=== PATIENT | female | born 1965 | race Two or more races ===

== ENCOUNTER 2017-09-18 06:10 | Outpatient (CLI) | payer OTHER ==
[2017-09-18] MEDS ORDERED: DICLOFENAC POTA50 MG PO (08:45)
== END 2017-09-18 06:18 | disposition home or self-care (01) ==
LOC: LAB 06:10
DX: D68.8 Other specified coagulation defects (principal); E78.2 Mixed hyperlipidemia; N39.0 Urinary tract infection, site not specified

== ENCOUNTER 2017-09-21 20:40 | Inpatient (IN) | payer OTHER ==
[~2017-09-21] VITALS: Ht 170.2 cm; Wt 77.1 kg
[~2017-09-21 20:40] MED LIST: DICLOFENAC POTA50 MG PO
== END 2017-09-26 14:53 | DRG 470 ==
LOC: SURG 09-23 05:54 → O/R 09-23 05:54 → SURH 09-23 07:54 → SURG 09-23 11:32 → SURH 09-23 19:05 → SURG 09-26 14:53
PROVIDERS: Orthopaedic Surgery
PROC: 0SRD0J9 Replacement of Left Knee Joint with Synthetic Substitute, Cemented, Open Approach (ICD-10-PCS; principal; 2017-09-23 10:00)
DX: M17.12 Unilateral primary osteoarthritis, left knee (principal); D62 Acute posthemorrhagic anemia

== ENCOUNTER 2017-11-10 09:26 | Outpatient (CLI) | payer OTHER | END 2017-11-10 09:31 | disposition home or self-care (01) | LOC: RAD 09:26 | DX: M25.561 Pain in right knee (principal); M25.562 Pain in left knee ==

== ENCOUNTER 2017-11-18 15:07 | Outpatient (CLI) | payer OTHER | END 2017-11-18 18:02 | disposition home or self-care (01) | LOC: RAD 15:07 | DX: M46.02 Spinal enthesopathy, cervical region (principal); M62.838 Other muscle spasm ==

== ENCOUNTER 2018-07-09 14:16 | Outpatient (CLI) | payer OTHER | END 2018-07-09 14:23 | disposition home or self-care (01) | LOC: RAD 14:16 | DX: M51.36 Other intervertebral disc degeneration, lumbar region (principal); M54.5 Low back pain ==

== ENCOUNTER 2018-08-19 11:20 | Outpatient (CLI) | payer OTHER | END 2018-08-19 11:23 | disposition home or self-care (01) | LOC: MAMO-SONO 11:20 | DX: N60.21 Fibroadenosis of right breast (principal); Z12.31 Encounter for screening mammogram for malignant neoplasm of breast ==

== ENCOUNTER 2019-05-26 13:07 | Outpatient (CLI) | payer OTHER | END 2019-05-26 13:14 | disposition home or self-care (01) | LOC: RAD 13:07 | DX: M25.561 Pain in right knee (principal); M25.562 Pain in left knee ==

== ENCOUNTER 2020-01-12 13:06 | Outpatient (CLI) | payer OTHER | END 2020-01-12 13:13 | disposition home or self-care (01) | LOC: RAD 13:06 | DX: M25.512 Pain in left shoulder (principal) ==

== ENCOUNTER 2020-11-20 10:36 | Outpatient (CLI) | payer OTHER | END 2020-11-20 10:40 | disposition home or self-care (01) | LOC: RAD 10:36 | PROVIDERS: ATTEND Orthopaedic Surgery Sports Medicine | DX: M19.012 Primary osteoarthritis, left shoulder (principal) ==

== ENCOUNTER → 2022-10-14 08:11 | Outpatient (CLI) | payer OTHER ==
[~2022-10-14] VITALS: Ht 170.2 cm; Wt 80.7 kg
== END | disposition home or self-care (01) ==
LOC: LAB 08:11
PROVIDERS: ATTEND Orthopaedic Surgery
DX: I49.9 Cardiac arrhythmia, unspecified (principal); Z76.89 Persons encountering health services in other specified circumstances; I10 Essential (primary) hypertension; D64.9 Anemia, unspecified; E88.9 Metabolic disorder, unspecified; D68.8 Other specified coagulation defects; N39.0 Urinary tract infection, site not specified; A49.02 Methicillin resistant Staphylococcus aureus infection, unspecified site; E11.9 Type 2 diabetes mellitus without complications

== ENCOUNTER 2022-11-07 09:47 | Inpatient (IN) | payer OTHER ==
[~2022-11-07] VITALS: Ht 170.2 cm; Wt 81.6 kg
[2022-11-07] MEDS ORDERED: ATORVASTATIN CA10 MG PO (15:17)
[2022-11-07] MEDS ORDERED: NORVASC2.5 M1 PO (15:17)
[2022-11-11] MEDS ORDERED: NORVASC2.5 MG (08:27)
[2022-11-11] MEDS ORDERED: AMLODIPINE BESYL5 MG (08:27)
[2022-11-11] MEDS ORDERED: LANSOPRAZOLE30 MG (08:27)
[2022-11-11] MEDS ORDERED: GABAPENTIN100 M2 (08:27)
[2022-11-11] MEDS ORDERED: XARELTO10 M1 (08:27)
== END 2022-11-13 13:57 | DRG 470 ==
LOC: O/R 11-11 05:25 → SURG 11-11 05:25
PROVIDERS: ADMIT Orthopaedic Surgery; ATTEND Orthopaedic Surgery
PROC: 0SRC0J9 Replacement of Right Knee Joint with Synthetic Substitute, Cemented, Open Approach (ICD-10-PCS; principal; 2022-11-11 09:15)
DX: M17.11 Unilateral primary osteoarthritis, right knee (principal); I10 Essential (primary) hypertension

== ENCOUNTER 2023-04-09 10:55 | Outpatient (CLI) | payer OTHER ==
[~2023-04-09 10:55] MED LIST changes: +AMLODIPINE BESYL5 MG; +ATORVASTATIN CA10 MG PO; +GABAPENTIN100 M2; +LANSOPRAZOLE30 MG; +NORVASC2.5 M1 PO; +NORVASC2.5 MG; +XARELTO10 M1
== END 2023-04-09 11:04 | disposition home or self-care (01) ==
LOC: NUCLEAR 10:55
PROVIDERS: ATTEND Orthopaedic Surgery
DX: I80.221 Phlebitis and thrombophlebitis of right popliteal vein (principal); Z96.651 Presence of right artificial knee joint

== ENCOUNTER 2023-04-10 08:20 | Outpatient (CLI) | payer OTHER | END 2023-04-10 08:21 | disposition home or self-care (01) | LOC: NUCLEAR 08:20 | PROVIDERS: ATTEND Internal Medicine | DX: G45.0 Vertebro-basilar artery syndrome (principal) ==

== ENCOUNTER 2023-05-07 14:12 | Outpatient (CLI) | payer OTHER | END 2023-05-07 14:17 | disposition home or self-care (01) | LOC: RAD 14:12 | DX: M99.01 Segmental and somatic dysfunction of cervical region (principal); M99.02 Segmental and somatic dysfunction of thoracic region; M99.03 Segmental and somatic dysfunction of lumbar region; M99.04 Segmental and somatic dysfunction of sacral region; M99.05 Segmental and somatic dysfunction of pelvic region; M54.2 Cervicalgia; M54.6 Pain in thoracic spine; M54.59 Other low back pain; M54.51 Vertebrogenic low back pain; M25.551 Pain in right hip ==

== ENCOUNTER 2024-08-18 13:49 | Emergency (ER) | payer OTHER ==
[~2024-08-18] VITALS: Ht 170.2 cm; Wt 84.8 kg
[2024-08-18] MEDS ORDERED: AVALIDE 300-121 EACH PO (14:02)
[2024-08-18] MEDS ORDERED: DEXAMETHASONE SODIUM PHOSPHATE 4 MG/ML VIAL IM STA (15:01)
[2024-08-18] MEDS ORDERED: KETOROLAC TROMETHAMINE 60 MG VIAL IM STA (15:01)
[2024-08-18] MEDS ORDERED: OxyCODONE HCL/APAP UD (PERCOCET) PO STA (15:02)
[2024-08-18] MEDS ORDERED: ORPHENADRINE CITRATE 30 MG/ML AMPUL IM STA (15:02)
== END 2024-08-18 15:25 | disposition home or self-care (01) ==
LOC: ER 13:51
DX: M54.17 Radiculopathy, lumbosacral region (principal); Z88.6 Allergy status to analgesic agent

== ENCOUNTER 2024-09-02 15:33 | Emergency (ER) | payer OTHER ==
[~2024-09-02] VITALS: Ht 170.2 cm; Wt 84.8 kg
[~2024-09-02 15:33] MED LIST changes: +AVALIDE 300-121 EACH PO
[2024-09-02] MEDS ORDERED: GABAPENTIN300 M2 PO (15:51)
[2024-09-02] MEDS ORDERED: NABUMETONE750 MG PO (15:51)
[2024-09-02] MEDS ORDERED: ORPHENADRINE CITRATE 30 MG/ML AMPUL IM ONE (16:45)
[2024-09-02] MEDS ORDERED: METHYLPREDNISOLONE SOD SUCC 125 MG VIAL IM ONE (16:45)
[2024-09-02] MEDS ORDERED: ZANAFLEX4 M1 PO (16:59)
[2024-09-02] MEDS ORDERED: SURFAK240 MG PO (16:59)
[2024-09-02] MEDS ORDERED: PEPCID AC20 MG PO (16:59)
== END 2024-09-02 18:47 ==
LOC: ER 15:35
DX: M47.814 Spondylosis without myelopathy or radiculopathy, thoracic region (principal); M47.812 Spondylosis without myelopathy or radiculopathy, cervical region; M54.6 Pain in thoracic spine; Z88.6 Allergy status to analgesic agent; I10 Essential (primary) hypertension

== ENCOUNTER → 2025-05-24 09:25 | Outpatient (CLI) | payer OTHER ==
[~2025-05-24 09:25] MED LIST changes: +GABAPENTIN300 M2 PO; +NABUMETONE750 MG PO; +PEPCID AC20 MG PO; +SURFAK240 MG PO; +ZANAFLEX4 M1 PO
== END | disposition home or self-care (01) ==
LOC: NUCLEAR 09:25
PROVIDERS: ATTEND Orthopaedic Surgery
DX: M81.0 Age-related osteoporosis without current pathological fracture (principal)

== ENCOUNTER 2025-06-30 07:03 | Outpatient (CLI) | payer OTHER | END 2025-06-30 07:07 | disposition home or self-care (01) | LOC: LAB 07:03 | PROVIDERS: ATTEND Orthopaedic Surgery | DX: E55.9 Vitamin D deficiency, unspecified (principal); M85.9 Disorder of bone density and structure, unspecified; E56.1 Deficiency of vitamin K ==

== ENCOUNTER 2025-07-28 09:40 | Outpatient (CLI) | payer OTHER | END 2025-07-28 09:50 | disposition home or self-care (01) | LOC: RAD 09:40 | PROVIDERS: ATTEND Orthopaedic Surgery | DX: M25.571 Pain in right ankle and joints of right foot (principal); M25.572 Pain in left ankle and joints of left foot; M25.561 Pain in right knee; M25.562 Pain in left knee; M54.40 Lumbago with sciatica, unspecified side ==

== ENCOUNTER 2025-08-18 11:11 | Outpatient (CLI) | payer OTHER | END 2025-08-18 11:16 | disposition home or self-care (01) | LOC: SONOGRAMA 11:11 | PROVIDERS: ATTEND Orthopaedic Surgery | DX: M76.71 Peroneal tendinitis, right leg (principal) ==